=== PATIENT | female | born 1960 | race Caucasian/White ===

== ENCOUNTER 2016-08-25 09:27 | Emergency (ER) | payer BC ==
[2016-08-25 09:40] VITALS: BP 117/80
--- NOTE | 2016-08-25 15:29 | UC ---
Keena Goode Claudia, scribed for Shamika Brantley DO on 08/25/16 at 0942 . Shoulder Pain HPI - HPI Summary HPI Summary: 56 year old female presents to Urgent Care with right shoulder pain. Pt notes she suffered a mechanical fall in late June 2016 and thinks she did something to her right arm during the fall. Pt notes that within the last days she began having increased right shoulder pain and describes this pain as 8/10. Pt notes the sudden onset of pain was about a month ago but the pain has severely increased over the past few days. 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 Pt notes the pain is a constant throbbing pain. Pt states pain is aggravated with movement especially external rotation, internal rotation and abduction. She notes the pain radiates down her upper arm to her elbow with some occasional hand tingling to all 5 digits. She denies CP, SOB, abd pain, cough, LONG, rash, sore throat, urinary and bowel changes. - History of Current Complaint Chief Complaint: UCUpperExtremity Stated Complaint: SHOULDER INJURY Time Seen by Provider: 08/25/16 09:39 Hx Obtained From: Patient Onset/Duration: Sudden Onset, Still Present, Worse Since - today Timing: Constant Severity Initially: Moderate Severity Currently: Moderate Location Of Pain: Is Discrete @ - right shoulder, Radiates To - right elbow Character: Throbbing Aggravating Factor(s): Movement, Internal Rotation, External Rotation, Abduction Alleviating Factor(s): Nothing Associated Signs And Symptoms: Negative: Fever - Allergies/Home Medications Allergies/Adverse Reactions: Allergies Allergy/AdvReac Type Severity Reaction Status Date / Time Penicillins Allergy Severe Hives Verified 08/25/16 09:40 Bee Stings Allergy Airway Uncoded 08/25/16 09:40 Obstruction Hard Shellfish Allergy Hives Uncoded 08/25/16 09:40 Iodine Allergy Hives Uncoded 08/25/16 09:40 Home Medications: Home Medications Zolpidem TAB* [Ambien TAB*] 5 mg PO BEDTIME PRN 08/25/16 [History Confirmed 12/04] PMH/Surg Hx/FS Hx/Imm Hx Previously Healthy: Yes Endocrine History Of: Denies: Diabetes, Thyroid Disease Cardiovascular History Of: Denies: Cardiac Disorders, Hypertension Respiratory History Of: Denies: COPD, Asthma GI/ History Of: Denies: Ulcer Cancer History Of: Denies: Breast Cancer - Surgical History Surgical History: Yes Surgery Procedure, Year, and Place: Hysterectomy. left rotator cuff repair 2008 - Family History Known Family History: Negative: Cardiac Disease, Hypertension, Diabetes - Social History Occupation: Employed Full-time Lives: Alone Alcohol Use: Occasionally Substance Use Type: None Smoking Status (MU): Former Smoker Type: Cigarettes Have You Smoked in the Last Year: No When Did the Patient Quit Smoking/Using Tobacco: 1983 - Immunization History Most Recent Influenza Vaccination: may 2016 Review of Systems Constitutional: Negative Skin: Negative Eyes: Negative ENT: Negative Respiratory: Negative Cardiovascular: Negative Gastrointestinal: Negative Genitourinary: Negative Motor: Negative Neurovascular: Negative Musculoskeletal: Other: - right shoulder pain Neurological: Negative Psychological: Negative All Other Systems Reviewed And Are Negative: Yes Physical Exam Triage Information Reviewed: Yes Appearance: Well-Appearing, No Pain Distress, Well-Nourished Vital Signs: Initial Vital Signs Temp 98.6 F 08/25/16 09:33 Pulse 66 08/25/16 09:33 Resp 18 08/25/16 09:33 BP 117/80 08/25/16 09:33 Pulse Ox 98 08/25/16 09:33 Vital Signs Reviewed: Yes Eye Exam: Normal Eyes: Positive: Conjunctiva Clear. Negative: Conjunctiva Inflamed ENT Exam: Normal ENT: Positive: Hearing grossly normal. Negative: Muffled/hoarse voice Dental Exam: Normal Neck exam: Normal Neck: Positive: Supple Respiratory Exam: Normal Respiratory: Positive: Lungs clear, Normal breath sounds, No respiratory distress, No accessory muscle use Cardiovascular Exam: Normal Cardiovascular: Positive: RRR, No Murmur Abdominal Exam: Normal Abdomen Description: Positive: Nontender, Soft. Negative: Distended, Guarding Bowel Sounds: Positive: Present Musculoskeletal: Positive: Other: - Tenderness over the supraspinatus attachement with diffuse rotatorcuff tenderness. Weakness with empty can test, hard barrier appreciated with abduction and flexion at the shoulder. No bony tenderness. Neurological Exam: Normal Neurological: Positive: Alert, Muscle Tone Normal Psychological Exam: Normal Psychological: Positive: Age Appropriate Behavior Skin Exam: Normal Shoulder Course/Dx - Differential Dx/Diagnosis Differential Diagnosis/HQI/PQRI: Bursitis, Rotator Cuff Injury, Sprain, Other - frozen shoulder Provider Diagnoses: shoulder pain Discharge - Discharge Plan Condition: Stable Disposition: HOME Prescriptions: Naproxen [Naproxen 500 MG TABS] 500 mg PO BID #14 tab traMADol TAB* [Ultram*] 50 mg PO Q8H PRN #14 tab MDD 3 TABS PRN Reason: Pain Patient Education Materials: Rotator Cuff Tendinitis (ED), Adhesive Capsulitis (ED), Shoulder Pain (ED) Forms: *Work Release Referrals: Hoang Gan MD [Primary Care Provider] - If Needed Evan Escobar MD [Medical Doctor] - (FOLLOW UP IN 1-4 DAYS OR PER ORTHO) Additional Instructions: WE HAVE INCLUDED EDUCATIONAL MATERIAL OF ADHESIVE CAPSULITIS AND ROTATOR CUFF INJURY BECAUSE THEY ARE BOTH POSSIBLE EXPLAINATIONS FOR YOUR SHOULDER PAIN. EXERCISE PROGRAM FOR THE SHOULDER: Since the shoulder moves in so many directions, the joint attachment is weak. Muscles provide most of the stability to the shoulder. You must exercise your shoulder to prevent painful instability or stiffening. PASSIVE - These may be begun within a few days of the injury. While standing, lean forward, allowing the arm to hang down towards the floor. Move the arm in small circles while slowly twisting your chest towards and away from the hanging arm. Do this for one minute. ACTIVE - These may be performed when the doctor gives permission. Begin with the arms at the sides. Raise the arms forward (shoulder's width apart) until they reach shoulder level. Then slowly swing both arms back until they are aiming straight out away from each other. Then bring them forward again, and finally, lower them to your sides. Repeat 20 to 30 times. As you improve, put weights in your hands for the exercise. Start with one pound, and work up to 10 pounds. Never use more than is comfortable. Athletes may work up to 30 pounds. PHYSICAL THERAPY REFERRAL: You have been prescribed physical therapy. Treatments may include stretching, exercise, application of heat or cold, and other modalities. After an injury, PT can reduce swelling and pain. In recovery, PT is used to restore mobility and strength. Your specific treatment goals are: Reduction of Swelling (EGS, US, ice as needed) __x___ Pain Reduction (EGS, US, ice as needed) TENS Pack Fitting and Instruction Wound Hydrotherapy Preservation of Mobility __x___ Zoroastrianism of Mobility Strength Zoroastrianism __x___ Work or Sports Hardening This instruction sheet also serves as your PHYSICAL THERAPY REFERRAL! Please take it with you to the therapist, so he/she will be aware of your diagnosis and treatment plan. You may see the physical therapist of your choice for these treatments, but may wish to check with your insurance to be sure the provider you select is covered. It's important to see the doctor to whom you have been referred for follow up. ANTI-INFLAMMATORY MEDICATION: You have received a prescription for an antiinflammatory agent. This is an excellent, safe drug for pain control. In addition, it has potent antiinflammatory effects which are beneficial, especially in the treatment of injuries, arthritis, or tendonitis. It's best to take this medicine with food. Persons with ulcer disease or allergy to aspirin should notify their physician of this before taking this drug. Take the medication exactly as prescribed. Don't take additional doses unless instructed to do so by your doctor. If you develop wheezing, shortness of breath, hives, faintness, stomach pain, vomiting, or dark black stools, return for re-evaluation at once. ULTRAM (tramadol hydrochloride): Ultram is an excellent drug for pain relief. It is not a narcotic, but it works in a similar way. Ultram can take up to two hours for full effect. Although not addicting, Ultram is best avoided in patients with a history of drug abuse. Ultram should not be used with alcohol, sleeping pills, or narcotics. If you're prone to seizures, Ultram can make you more likely to have a seizure. Ultram can be hazardous when combined with MAO-inhibitor antidepressants (such as Nardil or Parnate). Be sure your doctor is aware of all medicines you are taking. Persons with severe liver or kidney disease should increase the time between doses of Ultram. Discuss this with your doctor if you're uncertain. Side effects of Ultram can include dizziness, nausea, constipation, sleepiness, and itching. (These side effects are also seen with narcotic pain medicines.) Please call your doctor if you have other disturbing effects. YOU WOULD LIKELY BENEFIT FROM OSTEOPATHIC TREATMENT. WE RECOMMEND THAT YOU FIND AN OSTEOPATHIC PHYSICIAN IN YOUR AREA WHO FOCUSES EXCLUSIVELY ON OSTEOPATHIC MANIPULATIVE MEDICINE WITH EXPERTISE IN MYOFACIAL, LYMPHATIC, VISCERAL AND INTEROSSEOUS WORK The documentation as recorded by the Keena goldman Claudia accurately reflects the service I personally performed and the decisions made by , Shamika Brantley DO.
== END 2016-08-25 10:49 | disposition home or self-care (01) ==
LOC: UCEAST 09:27
DX: M25.511 Pain in right shoulder (principal); Z88.0 Allergy status to penicillin; Z87.891 Personal history of nicotine dependence
CPT/HCPCS: 99212; G0463

== ENCOUNTER 2018-08-11 11:19 | Emergency (ER) | payer BC ==
--- OUTSIDE RECORDS SUMMARY | 2018-08-11 11:26 | XMS REPORT | Continuity of Care Document ---
:1960 External Reference #:[id number] Author Name Hoang Gan M.D. Address [address] [place] [address] Care Team Providers Name Role Phone Hoang Gan M.D. 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 [address] Group Name: [employer] MARKOS Benites [id number] PayID: [id number] Effective: 2013 Policy Number: [id number] Hubert DENILSON Javi [place] Expires: 2016 Group Name: [employer] [place] [address] [address] PayID: [id number] MARKOS Benites [id number] Effective: 2016 Policy Number: [id number] Hubert MIMABS Javi W [place] Group Name: [employer] [address] [address] PayID: [id number] MARKOS Benites [id number] Advance Directives Description No Information Available Problems Description No Information Family History Date Family Member(s) Problem(s) Comments Onset: (age 71 Father Cancer, Prostate Years) Father 83 Father Depression Onset: (age 70 Mother Osteoporosis Years) Mother 82 Children 1 First Son Sleep Apnea resolved after significant weight loss Siblings 2 First Brother Well And Healthy First Sister TMJ First Sister Celiac Sprue First Sister Arrhythmia has a pacer First Sister Crohn's Disease Paternal Grandfather due to Unknown () Causes Paternal Grandmother Peripheral Vascular Disease Maternal Grandfather due to COPD () Maternal Grandmother due to Cancer, () Ovarian Paternal Uncles Scleroderma age 50's, not sure of the cause Paternal Aunts Scleroderma arthritis, cutaneous involvement Paternal Aunts Crohn's Disease Social History Type Date Description Comments Sex Unknown Marital Status Single Lives With Male Partner Brett Diet Healthy, Well Balanced no junk foods, eating vegetables, eggs, meat, dairy, no bread or pasta. Pets 2 dogs Occupation Currently Working [employer] in [place] 5 days per week Hand Dominance Left-handed Tobacco Use Start: Unknown End: Former Cigarette Smoker for 5 years Unknown 1/2 Pack Daily Cigarette Use quit at age 24 ETOH Use Drinks about 2 shots of bourbon a day Recreational Drug Use Denies Drug Use Exercise Type/Frequency exercises sporadically tries to walk 2 miles at least three times per week Currently Active sexually active STD's No STD History Allergies, Adverse Reactions, Alerts Date Description Reaction Status Severity Comments 07/06/2004 Penicillin Active hives (cephalosporins Ok) 07/06/2004 Bee Stings Active anaphlactic 08/19/2012 Shellfish-derived Active hives after lobster, Products nausea after scallops Medications Medication Date Status Form Strength Qnty SIG Indications Ordering Provider Mirtazapine 05/06 Active Tablets 15mg 90tab take one s tablet by Elvia, mouth at M.D. bedtime Estradiol 05/16 Active Tablets 0.5mg 270ta 3 by mouth bs every day Angelina Gan Multi Adult 01/01 Active Chewtabs daily Ashkanwnti Gummi NIRAV Foster Epipen 2-Olu 04/18 Active Solution 0.3mg/0.3 2Pack use as Z91.030 Auto-Inject ML directed Angelina Gan Sulfamethoxazole/ 04/21 Hx Tablets 800-160mg 6tabs 1 take Hoang Trimethoprim tablet Elvia, - twice a M.D. 07/08 day for days Estrace 05/08 Hx Cream 0.1mg/GM 42.5u insert 2 nits to 4 grams Elvia, - vaginally M.D. 01/15 daily 1 to 2 weeks; then 1 gram 1 to 3 times a week then taper and repeat as needed Fluticasone 1010 Hx Suspension 50mcg/Act 16gm 2 sprays J01.90 Herson Propionate into each Lorena - nostril III, 01/15 once daily [facility]- Doxycycline 10 Hx Tablets 100mg 20tab 1 tab by J01.90 Herson Hyclate s mouth [place] - twice a III, 01/15 day for 10 [facility] days for infection Vagifem 01/10 Hx Tablets 10mcg 30tab [address] of Elvia, - vagina x 2 M.D. Zolpidem Tartrate 01/10 Hx Tablets 10mg 30tab take one s tablet by Elvia, - mouth at M.D. 05/07 bedtime maximum daily dose=1 Zolpidem Tartrate 06/19 Hx Tablets 5mg 30tab Take 1-2 s Tablets By Elvia, - Mouth AT M.D. 01/10 Bedtime Maximum Daily Dose=2 Cefuroxime Axetil 06/07 Hx Tablets 500mg 20tab one by J01.90 Jojo s mouth [place], - twice a [facility] 01/09 day for days Trazodone HCL 01/01 Hx Tablets 50mg 30tab take 1 by s mouth Beto Kim, - every [employer] 01/09 night at bedtime if needed for sleep Zovirax 01/01 Hx Ointment 5% 30gm apply B00.89 laine Kim, - amount to [employer] 07/08 area five times daily for up to 7 days as needed for cold sore Tamiflu 09/20 Hx Capsules 75mg 10cap one po bid 487.8 s for 5 days Beto Kim, - for flu [facility] 09/30 Excuse For Work 12/01 Hx 1unit [place] 465.9 s needs to Elvia, - be out of M.D. 12/31 work 11/29 - 12/04/13 Guaifenesin/Codei 12/01 Hx Solution 100-10mg/ 240ml 1-2 tsp po 465.9 Hoang 5ML q6 hr prn, El Gan M.D. 01/01 Zostavax 09/14 Hx Solution [id number]/ 1unit perishable V70.0 Rec 0.65ML s vaccineEl Cifuentes M.D. 01/01 immediate y to md office for administra tion unless administer ed at pharmacy Macrobid 08/19 Hx Capsules 100mg 14cap 1 po bid x s 7 days El Gan M.D. 09/07 Ranitidine HCL 08/19 Hx Tablets 150mg 60tab Take One 787.1 s Tablet By El Foster Mouth [employer]-Edwina 01/01 Daily Macrobid 06/12 Hx Capsules 100mg 14cap 1 po bid x s 7 days El Gan M.D. 10/15 Citalopram 04/24 Hx Tablets 20mg 30tab 1 po qd 311 Hoang Hydrobromide s El Gan M.D. 03/26 Pantoprazole 04/[address] 20mg 30tab 1 po qd 787.1 Hoang Sodium s El Gan M.D. 04/24 Omeprazole 04/[address] 20mg 90cap Take One 787.1 s Capsule By lE Gan M.D. 09/14 Every Lexapro 03/28 Hx Tablets 10mg 30tab 1 po qd 311 s El Gan M.D. 04/18 Bactrim DS 12/05 Hx Tablets 800-160mg 6tabs one tab 912.4 bid x3 K.W. - mere Swartz, 10/15 M.D. Pyridium 12/05 Hx Tablets 100mg 6tabs 1 tab po 912.4 tid X 2 K.W. - mere Swatrz, 04/06 M.D. Ciprofloxacin HCL 07/03 Hx 250mg 10uni 1 po bid 599.0 ts for urine R. Storm, - infection [employer] 07/08 Phenazopyridine 07/03 Hx Tablets 200mg 6tabs 1 po tid 599.0 Shawnti HCL prn for Beto Kim, - bladder [employer] 07/13 pain Epipen 2-Olu 01/05 Hx Device 1:1000 2Pack use as V15.06 Shawnti /2008 directed DiaJulisa Julio, - [employer] 04/18 Medroxyprogestero Hx Tablets 2.5mg 45tab 1/2 tab po Hoang ne /0000 s at hs Elvia, - M.DJulisa 01/05 Triamterene & Hx Tablets 25mg;37.5 0tabs 1 po prn Unknown HCTZ /0000 mg - 06/06 Trazodone Hx Tablets 30tab One QHS Endo,Lawr s MD patito - 10/15 Estradiol Hx Tablets 1mg 135ta Take One bs Tablet By Elvia, - Mouth Once M.D. 05/16 Diphenhydramine Hx Capsules 50mg 1 po qhs Unknown HCL /0000 - 02/21 Immunizations CPT Code Status Date Vaccine Lot # [id number] Given 07/09/2018 Influenza Virus Vaccine, Quadrivalent, 3 Yr > [id number] Quad, Preserv Free 89750 Given 05/08/2017 Influenza Virus Vaccine, Quadrivalent, 3 Yr > [id number] Quad, Preserv Free 27478 Given 06/07/2016 Influenza Virus Vaccine, Quadrivalent, 3 Yr > [id number] Quad, Preserv Free 87733 Given 04/18/2011 Tdap (Adacel) [id number] Given 06/06/2005 Td Age 7 to adult Decavac, Tenivac, Mass [id number] Biologics Vital Signs Date Vital Result Comment 07/09/2018 10:12am Weight 146.00 lb Weight 66.226 kg BP Systolic 102 mmHg BP Diastolic 70 mmHg Heart Rate 62 /min Body Temperature 97.1 F Respiratory Rate 16 /min O2 % BldC Oximetry 97 % 04/21/2018 12:10pm Body Temperature 98.1 F 04/21/2018 12:10pm Body Temperature 98.1 F 01/15/2018 8:51am Weight 150.00 lb Weight 68.040 kg BP Systolic 100 mmHg BP Diastolic 70 mmHg Heart Rate 62 /min Body Temperature 98.2 F Respiratory Rate 16 /min Height 63 inches 5'3" BMI (Body Mass Index) 26.6 kg/m2 05/08/2017 4:16pm Weight 132.00 lb Weight 59.875 kg BP Systolic 102 mmHg BP Diastolic 66 mmHg Heart Rate 53 /min Body Temperature 98.1 F Respiratory Rate 16 /min O2 % BldC Oximetry 98 % 04/29/2017 10:32am Weight 146.00 lb Weight 66.226 kg BP Systolic 100 mmHg BP Diastolic 70 mmHg Heart Rate 68 /min Body Temperature 97.0 F Respiratory Rate 16 /min O2 % BldC Oximetry 98 % 04/10/2017 8:57am Weight 136.00 lb Weight 61.690 kg BP Systolic 100 mmHg BP Diastolic 60 mmHg Heart Rate 64 /min Body Temperature 98.3 F 01/10/2017 10:03am Weight 136.00 lb Weight 61.690 kg BP Systolic 90 mmHg BP Diastolic 58 mmHg Heart Rate 68 /min Body Temperature 98.1 F Height 63 inches 5'3" BMI (Body Mass Index) 24.1 kg/m2 O2 % BldC Oximetry 98 % 06/07/2016 3:48pm Weight 138.00 lb Weight 62.597 kg BP Systolic 100 mmHg BP Diastolic 75 mmHg Heart Rate 76 /min Body Temperature 97.8 F 05/16/2016 11:27am Weight 139.00 lb Weight 63.050 kg BP Systolic 111 mmHg BP Diastolic 58 mmHg Heart Rate 68 /min 01/02/2016 2:56pm Weight 135.00 lb Weight 61.236 kg BP Systolic 98 mmHg BP Diastolic 56 mmHg Heart Rate 56 /min Height 64 inches 5'4" BMI (Body Mass Index) 23.2 kg/m2 09/20/2014 10:32am Weight 125.00 lb Weight 56.700 kg BP Systolic 100 mmHg BP Diastolic 60 mmHg Heart Rate 65 /min Body Temperature 97.6 F O2 % BldC Oximetry 98 % 12/01/2013 3:42pm Weight 133.00 lb Weight 60.329 kg BP Systolic 102 mmHg BP Diastolic 62 mmHg Heart Rate 79 /min Body Temperature 99.9 F O2 % BldC Oximetry 99 % 09/14/2013 8:35am Weight 135.00 lb Weight 61.236 kg BP Systolic 102 mmHg BP Diastolic 64 mmHg Heart Rate 64 /min Body Temperature 98.1 F Height 64 inches 5'4" BMI (Body Mass Index) 23.2 kg/m2 08/19/2012 2:12pm Weight 141.00 lb Weight 63.958 kg BP Systolic 99 mmHg BP Diastolic 62 mmHg Heart Rate 66 /min Height 63.50 inches 5'3.50" BMI (Body Mass Index) 24.6 kg/m2 05/05/2012 3:22pm Weight 141.00 lb Weight 63.958 kg BP Systolic 102 mmHg BP Diastolic 76 mmHg Heart Rate 60 /min Body Temperature 98.0 F 04/21/2012 11:53am Weight 141.00 lb Weight 63.958 kg BP Systolic 96 mmHg BP Diastolic 56 mmHg Heart Rate 56 /min Body Temperature 97.4 F Height 63.25 inches 5'3.25" BMI (Body Mass Index) 24.8 kg/m2 04/18/2011 8:49am Weight 141.00 lb Weight 63.958 kg BP Systolic 104 mmHg BP Diastolic 66 mmHg Heart Rate 92 /min Height 64 inches 5'4" BMI (Body Mass Index) 24.2 kg/m2 10/16/2010 1:54pm Weight 148.00 lb Weight 67.133 kg BP Systolic 110 mmHg BP Diastolic 70 mmHg Heart Rate 64 /min 06/12/2010 2:56pm Weight 144.00 lb Weight 65.318 kg BP Systolic 94 mmHg BP Diastolic 70 mmHg Heart Rate 72 /min 04/24/2010 2:33pm Weight 149.00 lb Weight 67.586 kg BP Systolic 98 mmHg BP Diastolic 80 mmHg Heart Rate 64 /min 04/06/2010 4:12pm Weight 148.00 lb Weight 67.133 kg BP Systolic 120 mmHg BP Diastolic 78 mmHg Heart Rate 92 /min 03/28/2010 11:42am Weight 146.00 lb Weight 66.226 kg BP Systolic 108 mmHg BP Diastolic 84 mmHg Heart Rate 72 /min Body Temperature 98.0 F 12/05/2009 10:25am Weight 151.00 lb Weight 68.494 kg BP Systolic 116 mmHg BP Diastolic 84 mmHg Heart Rate 92 /min Body Temperature 97.6 F 07/03/2009 4:48pm Weight 150.00 lb Weight 68.040 kg BP Systolic 108 mmHg BP Diastolic 70 mmHg Heart Rate 92 /min 01/05/2009 1:28pm Weight 141.00 lb Weight 63.958 kg BP Systolic 110 mmHg BP Diastolic 70 mmHg Heart Rate 64 /min Height 63.25 inches 5'3.25" BMI (Body Mass Index) 24.8 kg/m2 09/23/2008 4:28pm Weight 143.00 lb Weight 64.865 kg BP Systolic 114 mmHg BP Diastolic 84 mmHg Heart Rate 72 /min Body Temperature 99.2 F 10/15/2006 8:48am Weight 136.50 lb Weight 61.916 kg BP Systolic 118 mmHg BP Diastolic 62 mmHg Heart Rate 64 /min Height 64 inches 5'4" BMI (Body Mass Index) 23.4 kg/m2 09/16/2006 3:23pm Weight 140.00 lb Weight 63.504 kg BP Systolic 110 mmHg BP Diastolic 60 mmHg Heart Rate 61 /min Respiratory Rate 18 /min Height 63.5 inches 5'3.50" BMI (Body Mass Index) 24.4 kg/m2 07/11/2006 10:50am Weight 138.00 lb Weight 62.597 kg BP Systolic 100 mmHg BP Diastolic 60 mmHg Heart Rate 80 /min Height 63.5 inches 5'3.50" BMI (Body Mass Index) 24.1 kg/m2 06/06/2005 8:44am Weight 140.00 lb Weight 63.504 kg BP Systolic 110 mmHg BP Diastolic 68 mmHg Heart Rate 72 /min Height 63.5 inches 5'3.50" BMI (Body Mass Index) 24.4 kg/m2 07/25/2004 10:40am Weight 137.00 lb Weight 62.143 kg BP Systolic 110 mmHg BP Diastolic 70 mmHg Heart Rate 80 /min Respiratory Rate 18 /min Height 64 inches 5'4" BMI (Body Mass Index) 23.5 kg/m2 07/06/2004 9:25am Weight 134.00 lb Weight 60.782 kg BP Systolic 120 mmHg BP Diastolic 70 mmHg Body Temperature 97.0 F Results Test Date Facility Test Result H/L Range Note Urine Culture And 04/21/2018 [facility] Urine Culture SEE RESULT 1 Sensitivities [phone] BELOW Urine DIP 04/21/2018 In House Lab Leukocytes NEG Neg (607)- - Urine Nitrites NEG Neg Urobilinogen NORM Norm Total Protein, Urine TRACE Neg Urine pH 8 High 5-6 Urine Blood 250 High Neg Specific [place] 1.005 Low 1.01-1.02 Urine Ketones NEG Neg Urine Bilirubin NEG Neg Urine Glucose NEG Norm CBC Auto Diff 01/08/2018 [facility] White Blood 6.8 10^3/uL N 3.5-10.8 [phone] Count Red Blood Count 4.67 10^6/uL N 4.00-5.40 Hemoglobin 15.1 g/dL N 12.0-16.0 Hematocrit 45 % N 35-47 Mean Corpuscular Volume 95 fL N 80-97 Mean Corpuscular Hemoglobin 32 pg High 27-31 Mean Corpuscular HGB Conc 34 g/dL N 31-36 Red Cell Distribution Width 14 % N 10.5-15 Platelet Count 342 10^3/uL N 150-450 Mean Platelet Volume 9.2 um3 N 7.4-10.4 Abs Neutrophils 4.2 10^3/uL N 1.5-7.7 Abs Lymphocytes 1.7 10^3/uL N 1.0-4.8 Abs Monocytes 0.7 10^3/uL N 0-0.8 Abs Eosinophils 0.2 10^3/uL N 0-0.6 Abs Basophils 0 10^3/uL N 0-0.2 Abs Nucleated RBC 0 10^3/uL Granulocyte % 62.1 % N 38-83 Lymphocyte % 25.2 % N 25-47 Monocyte % 9.7 % High 0-7 Eosinophil % 2.4 % N 0-6 Basophil % 0.6 % N 0-2 Nucleated Red Blood Cells % 0 Comp Metabolic Panel 01/08/2018 [facility] Sodium 141 mmol/L N 135-145 [phone] Potassium 4.3 mmol/L N 3.5-5.0 Chloride 104 mmol/L N 101-111 Co2 Carbon Dioxide 28 mmol/L N 22-32 Anion Gap 9 mmol/L N 2-11 Glucose 98 mg/dL N 70-100 Blood Urea Nitrogen 17 mg/dL N 6-24 Creatinine 0.93 mg/dL N 0.51-0.95 BUN/Creatinine Ratio 18.3 N 8-20 Calcium 9.5 mg/dL N 8.6-10.3 Total Protein 7.1 g/dL N 6.4-8.9 Albumin 4.1 g/dL N 3.2-5.2 Globulin 3.0 g/dL N 2-4 Albumin/Globulin Ratio 1.4 N 1-3 Total Bilirubin 0.70 mg/dL N 0.2-1.0 Alkaline Phosphatase 22 U/L Low 34-104 Alt 22 U/L N 7-52 Ast 26 U/L N 13-39 Egfr Non- 61.7 >60 Egfr 74.7 >60 2 Lipid Profile 01/08/2018 [facility] Triglycerides 76 mg/dL 3 (Trig/Chol/HDL) [phone] Cholesterol 242 mg/dL 4 HDL Cholesterol 84.2 mg/dL 5 LDL Cholesterol 143 mg/dL 6 Laboratory test 07/25/2017 [facility] Surgical SEE RESULT 7, 8 finding [phone] Pathology BELOW CBC Auto Diff 01/02/2016 [facility] White Blood 8.5 10^3/uL N 3.5-4 [phone] Count 0.8 Red Blood Count 4.39 10^6/uL N 4.0-5.4 Hemoglobin 14.0 g/dL N 12.0-16.0 Hematocrit 42 % N 35-47 Mean Corpuscular Volume 96 fL N 80-97 Mean Corpuscular Hemoglobin 32 pg High 27-31 Mean Corpuscular HGB Conc 33 g/dL N 31-36 Red Cell Distribution Width 13 % N 10.5-15 Platelet Count 322 10^3/uL N 150-450 Mean Platelet Volume 9 um3 N 7.4-10.4 Abs Neutrophils 5.3 10^3/uL N 1.5-7.7 Abs Lymphocytes 2.2 10^3/uL N 1.0-4.8 Abs Monocytes 0.8 10^3/uL N 0-0.8 Abs Eosinophils 0.1 10^3/uL N 0-0.6 Abs Basophils 0.1 10^3/uL N 0-0.2 Abs Nucleated RBC 0.01 10^3/uL N Granulocyte % 62.9 % N 38-83 Lymphocyte % 26.0 % N 25-47 Monocyte % 9.1 % High 1-9 Eosinophil % 1.3 % N 0-6 Basophil % 0.7 % N 0-2 Nucleated Red Blood Cells % 0.1 N Comp Metabolic Panel 01/02/2016 [facility] Sodium 137 mmol/L N 133-145 [phone] Potassium 3.9 mmol/L N 3.5-5.0 Chloride 100 mmol/L Low 101-111 Co2 Carbon Dioxide 29 mmol/L N 22-32 Anion Gap 8 mmol/L N 2-11 Glucose 83 mg/dL N 70-100 Blood Urea Nitrogen 15 mg/dL N 6-24 Creatinine 0.97 mg/dL High 0.51-0.95 BUN/Creatinine Ratio 15.5 N 8-20 Calcium 10.0 mg/dL N 8.6-10.3 Total Protein 7.7 g/dL N 6.4-8.9 Albumin 4.6 g/dL N 3.2-5.2 Globulin 3.1 g/dL N 2-4 Albumin/Globulin Ratio 1.5 N 1-3 Total Bilirubin 0.80 mg/dL N 0.2-1.0 Alkaline Phosphatase 18 U/L Low 34-104 Alt 21 U/L N 7-52 Ast 25 U/L N 13-39 Egfr Non- 59.2 N >60 Egfr 76.1 N >60 9 Laboratory 01/02/2016 [facility] TSH (Thyroid Stim 1.42 N 0.34-5.60 10 test finding [phone] Horm) ?IU/mL Lipid Profile 01/02/2016 [facility] Triglycerides 93 mg/dL N 11 (Trig/Chol/HDL [phone] ) Cholesterol 214 mg/dL N 12 HDL Cholesterol 93.3 mg/dL N 13 LDL Cholesterol 102 mg/dL N 14 Flu Test A, B, Or A & B,Binaxn 12/01/2013 In House Lab Influenza A Antigen NEG (607)- - Influenza B Antigen NEG Urine DIP 09/14/2013 In House Lab Leukocytes TRACE Neg (607)- - Urine Nitrites NEG Neg Urine pH 7 High 5-6 Total Protein, Urine NEG Neg Urine Glucose NORM Norm Urine Ketones NEG Neg Urobilinogen NORM Norm Urine Bilirubin NEG Neg Urine Blood NEG Neg Specific [place] 1.010 1.01-1.02 Stool Panel 04/27/2012 [facility] O P: Giardia/ Cryptospor (SEE NOTE) 15 (CMC) [phone] Screen Stool Culture (SEE NOTE) 16 Stool For Blood 04/27/2012 [facility] Stool Occult ( SEE NOTE) 17 [phone] Blood Laboratory test 04/27/2012 [facility] Fecal Lactoferrin (SEE NOTE) 18 finding [phone] (Stool WBC) CBC With Manual 04/21/2012 [facility] White Blood Count 6.7 10^3/uL 4.8-1 Diff [phone] 0.8 Red Blood Count 3.97 10^6/uL Low 4.0-5.4 Hemoglobin 12.7 g/dL 12.0-16.0 Hematocrit 38.8 % 35-47 Mean Corpuscular Volume 98 fL High 80-97 Mean Corpuscular Hemoglobin 32 pg High 27-31 Mean Corpuscular HGB Conc 33 g/dL 31-36 Red Cell Distribution Width 14 % 10.5-15 Platelet Count 261 10^3/uL 150-450 Mean Platelet Volume 9 um3 7.4-10.4 Abs Neutrophils 4.2 10^3/uL 1.5-7.7 Abs Lymphocytes 1.7 10^3/uL 1.0-4.8 Abs Monocytes 0.7 10^3/uL 0-0.8 Abs Eosinophils 0.2 10^3/uL 0-0.6 Abs Basophils 0.1 10^3/uL 0-0.2 Abs Nucleated RBC 0 10^3/uL Neutrophil % 63.0 % 38-83 Band % 6.0 % 0-8 Lymphocytes % 21.0 % Low 25-47 Monocytes % 9.0 % 0-13 Eosinophils % 1.0 % 0-6 Basophil % 0 % 0-2 Reactive Lymph % 0 % 0-6 Metamyelocytes % 0 % 0-2 Myelocytes % 0 % 0-1 Promyelocytes % 0 % Blast % 0 % RBC Morphology Normal Normal Comp Metabolic Panel 04/21/2012 [facility] Sodium 140 mmol/L 133-145 [phone] Potassium 4.0 mmol/L 3.5-5.0 Chloride 104 mmol/L 101-111 Co2 Carbon Dioxide 30.0 mmol/L 22-32 Anion Gap 6.0 mmol/L 2-11 Glucose 89 mg/dL 70-100 Blood Urea Nitrogen 11 mg/dL 6-24 Creatinine 0.90 mg/dL 0.50-1.40 BUN/Creatinine Ratio 12.2 8-20 Calcium 9.3 mg/dL 8.1-9.9 Total Protein 6.3 GM/DL 6.2-8.1 Albumin 3.8 GM/DL 3.6-5.4 Globulin 2.5 GM/DL 2-4 Albumin/Globulin Ratio 1.5 1-3 Total Bilirubin 0.9 mg/dL 0.1-1.0 19 Alkaline Phosphatase 19 U/L Low 30-110 Alt 21 U/L 14-54 Ast 25 U/L 12-42 Egfr Non- 65.2 >60 Egfr 83.9 >60 20 Laboratory test finding 04/21/2012 [facility] Lipase 33 U/L 22-51 [phone] Amylase 62 U/L 20-120 Urine Culture & 04/21/2012 [facility] Urine Culture ( SEE NOTE) 21 Sensitivi [phone] Urine DIP 04/21/2012 In House Lab Leukocytes TRACE Neg (607)- - Urine Nitrites NEG Neg Urine pH 7 High 5-6 Total Protein, Urine NEG Neg Urine Glucose NORM Norm Urine Ketones NEG Neg Urobilinogen NORM Norm Urine Bilirubin NEG Neg Urine Blood NEG Neg Specific [place] N/A Low 1.01-1.02 Urine DIP 04/18/2011 In House Lab Leukocytes NEG Neg (607)- - Urine Nitrites NEG Neg Urine pH 6 5-6 Total Protein, Urine NEG Neg Urine Glucose NORM Norm Urine Ketones NEG Neg Urobilinogen NORM Norm Urine Bilirubin NEG Neg Urine Blood TINY TRACE Neg Specific [place] NA Low 1.01-1.02 Hemoccult 04/09/2010 In House Lab Stool-Occult Blood #1 neg Neg (607)- - Stool-Occult Blood #2 neg Neg Stool-Occult Blood #3 neg Neg Laboratory test 04/06/2010 [facility] Urine Culture No significant g 22 finding [phone] <SEE NOTE> Urine DIP 04/06/2010 In House Lab Leukocytes ++ Neg (607)- - Urine Nitrites NEG Neg Urine pH 5 5-6 Total Protein, Urine NEG Neg Urine Glucose NORM Norm Urine Ketones NEG Neg Urobilinogen NORM Norm Urine Bilirubin NEG Neg Urine Blood 250 High Neg Specific [place] N/A Low 1.01-1.02 CBC With 03/28/2010 [facility] White Blood 9.1 CUMM 4.8-10.8 Electronic Diff [phone] Count Red Cell Count 4.19 CUMM Low 4.2-5.4 Hemoglobin 13.9 g/dL 12.0-16.0 Hematocrit 40 % 35-47 Mean Corpuscular Volume 96 um3 79-97 Mean Corpuscular Hemoglob 33 pg High 27-31 Mean Corpuscular HGB Cone 35 g/dL 32-36 Redcell Distribution WDTH 14 % 10.5-15 Platelet Count 301 CUMM 150-450 Mean Platelet Volume 8.3 um3 7.4-10.4 Gran % 69.0 % 38-83 Lymph % 18.8 % Low 25-47 Mononuclear % 10.3 % High 1-9 Eosinophil % 1.4 % 0-6 Basophil % 0.5 % 0-2 Abs Lymphs 1.7 1.0-4.8 Abs Mononuclear 0.9 High 0-0.8 Absolute Neutrophil Count 6.3 1.5-7.7 Abs Eosinophils 0.1 0-0.6 Abs Basophils 0 0-0.2 23 Comp Metabolic Panel 03/28/2010 [facility] Sodium 140 mmol/L 135-145 [phone] Potassium 4.4 mmol/L 3.5-5.0 Chloride 102 mmol/L 101-111 Co2 (Carbon Dioxide) 30.0 mmol/L 22-32 Anion Gap 8.0 mmol/L 2-11 24 Glucose 75 mg/dL 70-100 25 BUN 10 mg/dL 6-24 Creatinine 1.00 mg/dL 0.50-1.40 One Over Creatinine 1.00 BUN/Creatinine Ratio 10.0 8-20 Calcium 9.7 mg/dL 8.1-9.9 Total Protein 7.0 GM/DL 6.2-8.1 Albumin 3.8 GM/DL 3.6-5.4 Globulin 3.2 GM/DL 2-4 Albumin/Globulin Ratio 1.2 1-3 Bilirubin Total 1.1 mg/dL 0.4-1.5 26 Alkaline Phosphatase 17 U/L Low 30-110 Alt (SGPT) 21 U/L 14-54 Ast (Sgot) 19 U/L 12-42 eGFR Non- 61.9 > 60 eGFR 74.9 > 60 27 Urine Culture 12/05/2009 [facility] Urine Culture ESCHERICHIA 28, 29 & Sensitivi [phone] Sensitivi COLI Urine DIP 12/05/2009 In House Lab Leukocytes ++ Neg (607)- - Urine Nitrites trace Neg Urine pH 5 5-6 Total Protein, Urine neg Neg Urine Glucose norm Norm Urine Ketones neg Neg Urobilinogen norm Norm Urine Bilirubin neg Neg Urine Blood about 250 Neg Specific [place] n/a Low 1.01-1.02 Urine DIP 07/03/2009 In House Lab Leukocytes + Neg (607)- - Urine Nitrites NEG Neg Urine pH 5 5-6 Total Protein, Urine NEG Neg Urine Glucose NORM Norm Urine Ketones NEG Neg Urobilinogen NORM Norm Urine Bilirubin NEG Neg Urine Blood 250 High Neg Specific [place] N/A Low 1.01-1.02 Laboratory test 07/03/2009 [facility] Urine Culture Escherichia coli 30 finding [phone] Urine DIP 01/05/2009 In House Lab Leukocytes NEG Neg (607)- - Urine Nitrites NEG Neg Urine pH 5 5-6 Total Protein, Urine NEG Neg Urine Glucose NORM Norm Urine Ketones NEG Neg Urobilinogen NORM Norm Urine Bilirubin NEG Neg Urine Blood NEG Neg Specific [place] NA Low 1.01-1.02 Vitamin D.25 01/05/2009 [facility] 25-Hydroxy Vitamin <4.0 ng/mL () Hydroxy [phone] D2 25-Hydroxy Vitamin D3 35 ng/mL () 25-Hydroxy Vitamin D Total 35 ng/mL () 31 CBC With 01/05/2009 [facility] White Blood 5.0 CUMM 4.8-10.8 Electronic Diff [phone] Count Red Cell Count 4.02 CUMM Low 4.2-5.4 Hemoglobin 12.9 g/dL 12.0-16.0 Hematocrit 37 % 35-47 Mean Corpuscular Volume 93 um3 79-97 Mean Corpuscular Hemoglob 32 pg High 27-31 Mean Corpuscular HGB Cone 35 g/dL 32-36 Redcell Distribution WDTH 13 % 10.5-15 Platelet Count 248 CUMM 150-450 Mean Platelet Volume 8.6 um3 7.4-10.4 Gran % 50.2 % 38-83 Lymph % 36.9 % 25-47 Mononuclear % 10.4 % High 1-9 Eosinophil % 1.9 % 0-6 Basophil % 0.6 % 0-2 Abs Lymphs 1.8 1.0-4.8 Abs Mononuclear 0.5 0-0.8 Absolute Neutrophil Count 2.5 1.5-7.7 Abs Eosinophils 0.1 0-0.6 Abs Basophils 0 0-0.2 Laboratory test 01/05/2009 [facility] TSH 1.33 MIU/ ML 0.34-5.60 finding [phone] Lipid Profile 01/05/2009 [facility] Triglyceride 66 mg/dL 40-200 (Trig/Chol/HDL) [phone] Cholesterol 204 mg/dL High Less Than 200 32 High Density Lipoprotein 95 mg/dL High 40-60 33 Cholesterol/HDL Ratio 2.15 AVERAGE 1-4.44 Low Density Lipoprotein 96 mg/dL Less Than 100 34 Comp Metabolic Panel 01/05/2009 [facility] Sodium 138 mmol/L 135-145 [phone] Potassium 3.8 mmol/L 3.5-5.0 Chloride 102 mmol/L 101-111 Co2 (Carbon Dioxide) 30.0 mmol/L 22-32 Anion Gap 6.0 mmol/L 2-11 35 Glucose 114 mg/dL High 70-100 36 BUN 14 mg/dL 6-24 Creatinine 1.10 mg/dL 0.50-1.40 One Over Creatinine 0.90 BUN/Creatinine Ratio 12.7 8-20 Calcium 9.3 mg/dL 8.1-9.9 37 Total Protein 6.3 GM/DL 6.2-8.1 Albumin 3.9 GM/DL 3.6-5.4 Globulin 2.4 GM/DL 2-4 Albumin/Globulin Ratio 1.6 1-3 Bilirubin Total 1.0 mg/dL 0.4-1.5 38 Alkaline Phosphatase 14 U/L Low 30-110 Alt (SGPT) 23 U/L 14-54 Ast (Sgot) 26 U/L 12-42 Laboratory test 09/23/2008 In House Lab Flu Test A&B, POS finding (607)- - Quickvue Basic Metabolic Panel 04/08/2007 [facility] One Over Creatinine 1.11 [phone] Anion Gap 6.0 mmol/L 2-11 39 BUN 23 mg/dL 6-24 Calcium 8.7 mg/dL 8.7-10.2 Chloride 101 mmol/L 101-111 Co2 (Carbon Dioxide) 28.0 mmol/L 22-32 Glucose 126 mg/dL High 70-105 Potassium 4.0 mmol/L 3.5-5.0 Sodium 135 mmol/L 135-145 BUN/Creatinine Ratio 25.6 High 8-20 Creatinine 0.9 mg/dL 0.5-1.4 CBC With 04/08/2007 [facility] White Blood 6.2 CUMM 4.8-10.8 Electronic Diff [phone] Count Abs Basophils 0.1 0-0.2 Abs Eosinophils 0.1 0-0.6 Absolute Neutrophil Count 3.6 1.5-7.7 Abs Lymphs 1.8 1.0-4.8 Abs Mononuclear 0.6 0-0.8 Basophil % 0.9 % 0-2 Hematocrit 42 % 35-47 Hemoglobin 14.5 g/dL 12.0-16.0 Eosinophil % 2.0 % 0-6 Gran % 59.2 % 38-83 Lymph % 28.6 % 20-45 Mean Corpuscular HGB Cone 34 g/dL 32-36 Mean Corpuscular Hemoglob 33 pg High 27-31 Mean Corpuscular Volume 94 um3 79-97 Mean Platelet Volume 8.2 um3 7.4-10.4 Mononuclear % 9.3 % High 1-9 Platelet Count 302 CUMM 150-450 Red Cell Count 4.47 CUMM 4.2-5.4 Redcell Distribution WDTH 14 % 10.5-15 Laboratory test 04/08/2007 [facility] Erythrocyte Sed 5 MM/HR 0-15 finding [phone] Rate Lipid Profile 10/20/2006 [facility] Cholesterol/HDL 2.45 AVERAGE 1-4.44 (Trig/Chol/HDL) [phone] Ratio Cholesterol 206 mg/dL High Less Than 200 40 Triglyceride 59 mg/dL 40-200 High Density Lipoprotein 84 mg/dL High 40-60 41 Low Density Lipoprotein 110 mg/dL High Less Than 100 42 Urine DIP 10/15/2006 In House Lab Leukocytes NEG Neg (607)- - Urine Nitrites NEG Neg Urine pH 5 5-6 Total Protein, Urine NEG Neg Urine Glucose NORM Norm Urine Ketones NEG Neg Urobilinogen NORM Norm Urine Bilirubin NEG Neg Urine Blood NEG Neg Specific [place] N/A Low 1.01-1.02 Urinalysis 01/15/2006 [facility] Ua Color YELLOW [phone] Appearance-Urine CLEAR Bilirubin-Ur NEGATIVE Negative Blood-Urine NEGATIVE Negative Esterase-Urine NEGATIVE Negative Glucose-Urine NEGATIVE Negative Ketones-Urine NEGATIVE Negative Nitrite NEGATIVE Negative PH-Urine 6.5 5-9 Protein-Urine NEGATIVE Negative [id number]-[id number] NEGATIVE Negative Specific [place]-Ur 1.018 1.010-1.030 Zaria 01/15/2006 [facility] Antinuclear POSITIVE Abnormal Negative (Antinuclear [phone] AB Antibodies) Antinuclear AB 1:320 Abnormal Zaria Pattern HOMOGENEOUS Abnormal Laboratory test 01/15/2006 [facility] Erythrocyte Sed 11 MM/HR 0-15 finding [phone] Rate CBC With 01/15/2006 [facility] White Blood 7.6 CUMM 4.8-10.8 Electronic Diff [phone] Count Abs Basophils 0 0-0.2 Abs Eosinophils 0.1 0-0.6 Absolute Neutrophil Count 5.2 1.5-7.7 Abs Lymphs 1.6 1.0-4.8 Abs Mononuclear 0.7 0-0.8 Basophil % 0.6 % 0-2 Hematocrit 39 % 35-47 Hemoglobin 13.5 g/dL 12.0-16.0 Eosinophil % 0.8 % 0-6 Gran % 68.7 % 38-83 Lymph % 20.6 % 20-45 Mean Corpuscular HGB Cone 35 g/dL 32-36 Mean Corpuscular Hemoglob 33 pg High 27-31 Mean Corpuscular Volume 95 um3 79-97 Mean Platelet Volume 8.5 um3 7.4-10.4 Mononuclear % 9.3 % High 1-9 Platelet Count 318 CUMM 150-450 Red Cell Count 4.06 CUMM Low 4.2-5.4 Redcell Distribution WDTH 14 % 10.5-15 CBC With Manual 08/19/2005 [facility] RBC Morphology NORMAL 43 Diff [phone] White Blood Count 9.2 CUMM 4.8-10.8 Hematocrit 42 % 35-47 Hemoglobin 14.6 g/dL 12.0-16.0 Mean Corpuscular HGB Cone 35 g/dL 32-36 Mean Corpuscular Hemoglob 32 pg High 27-31 Mean Corpuscular Volume 92 um3 79-97 Mean Platelet Volume 8.1 um3 7.4-10.4 Platelet Count 341 CUMM 150-450 Polysegmented Neutrophil 75 % 38-83 Red Cell Count 4.54 CUMM 4.2-5.4 Redcell Distribution WDTH 14 % 10.5-15 Absolute Neutrophil Count 7.1 Band Neutrophil 3 % 0-8 Basophil 1 % 0-2 Eosenophil 1 % 0-6 Lymphocyte 12 % 5-47 Monocyte 8 % 0-13 Laboratory test 08/19/2005 [facility] CPK (Creatine 123 U/L 0-170 finding [phone] Kinase) Comp Metabolic 08/19/2005 [facility] One Over 0.90 Panel [phone] Creatinine Anion Gap 5.0 mmol/L 2-11 44 Albumin/Globulin Ratio 1.2 1-3 Albumin 4.0 GM/DL 3.6-5.4 Alkaline Phosphatase 21 U/L Low 30-110 Alt (SGPT) 20 U/L 14-54 Ast (Sgot) 26 U/L 12-42 BUN 14 mg/dL 6-24 Calcium 9.5 mg/dL 8.7-10.2 Chloride 105 mmol/L 101-111 Co2 (Carbon Dioxide) 29.0 mmol/L 22-32 Globulin 3.3 GM/DL 2-4 Glucose 113 mg/dL High 70-105 Potassium 3.9 mmol/L 3.5-5.0 Sodium 139 mmol/L 135-145 Bilirubin Total 0.9 mg/dL 0.4-1.5 Total Protein 7.3 GM/DL 6.2-8.1 BUN/Creatinine Ratio 12.7 8-20 Creatinine 1.1 mg/dL 0.5-1.4 Laboratory test 08/19/2005 [facility] TSH 1.75 MIU/ ML 0.34-5.60 finding [phone] Vitamin B12 308 pg/mL 180-914 Zaria 08/19/2005 [facility] Antinuclear POSITIVE Abnormal Negative (Antinuclear [phone] AB Antibodies) Zaria Pattern SPECKLED Abnormal 45 Antinuclear AB POSITIVE (NEG) 46 Antinuclear AB 1:1280 Abnormal Laboratory test 08/19/2005 [facility] Endomysial Iga <1:10 TITER <1:10 47 finding [phone] Antibodies Urine DIP 06/06/2005 In House Lab Leukocytes NEG Neg (607)- - Urine Nitrites NEG Neg Urine pH 5 5-6 Total Protein, Urine NEG Neg Urine Glucose NORM Norm Urine Ketones NEG Neg Urobolinogen NORM Norm Urine Bilirubin NEG Neg Urine Blood NEG Neg Specific [place] NA Low 1.01-1.02 Urine DIP 07/06/2004 In House Lab Leukocytes NEG Neg (607)- - Urine Nitrites NEG Neg Urine pH 5 5-6 Total Protein, Urine NL Neg Urine Glucose NL Norm Urine Ketones NL Neg Urobolinogen NL Norm Urine Bilirubin NL Neg Urine Blood NL Neg Specific [place] N/A Low 1.01-1.02 1 SEE RESULT BELOW Name: RAYMOND SORIANO Mike : [address]: Hoang Gan MD Acct: [id number] Unit: [id number] AGE: 58 Location: [facility] Re04/21/18 SEX: F Status: REG REF SPEC: [id number] RG: 04/21/18-[address]: Hoang Gan MD REQ: [id number] RECD: 04/21/18 STATUS: COMP _ SOURCE: URINE SPDESC: ORDERED: Urine Culture COMMENTS: [id number] Urine Source: Random Procedure Result Reported Site Urine Culture Final 04/22/18- 1249 ML No Growth (<1,000 CFU/mL) * ML - Main Lab . END OF REPORT DEPARTMENT OF PATHOLOGY, [address] [place] [address] Dejuan Cochran M.D. Director [facility] # [id number] 2 Because ethnic data is not always readily available, this report includes an eGFR for both -Americans and non- Americans. The National Kidney Disease Education Program (NKDEP) does not endorse the use of the MDRD equation for patients that are not between the ages of 18 and 70, are , have extremes of body size, muscle mass, or nutritional status, or are non- or non-. According to the National Kidney Foundation, irrespective of diagnosis, the stage of the disease is based on the level of kidney function: Stage Description GFR(mL/min/1.73 m(2)) 1 Kidney damage with normal or decreased GFR 90 2 Kidney damage with mild decrease in GFR 60-89 3 Moderate decrease in GFR 30-59 4 Severe decrease in GFR 15-29 5 Kidney failure <15 (or dialysis) 3 Desirable: <150 Borderline High: 150-199 High: 200-499 Very High: >500 4 Desirable: <200 Borderline High: 200-239 High: >239 5 Low: <40 Desirable: 40-60 High: >60 6 Desirable: <100 Near Optimal: 100-129 Borderline High: 130-159 High: 160-189 Very High: >189 7 [id number] SEE RESULT BELOW Name: RAYMOND SORIANO : [address]: Jarred Trevizo MD Acct: [id number] Unit: [id number] AGE: 57 Location: [facility] Re07/25/17 SEX: F Status: REG REF SPEC: [id number] RG: 07/25/17130 [facility] DR: Jarred Trevizo MD REQ: [id number] RECD: 07/25/17 STATUS: [place] REYES DR: Hoang Valdovinos MD _ ORDERED: LEVEL 4 COMMENTS: [id number] FINAL DIAGNOSIS Skin, left superior forehead, excision: -- Scar, excised. -- No evidence of residual squamous cell carcinoma. COMMENT: The previous lesion at this site ([id number]) has been completely excised. CLINICAL HISTORY See [facility] [id number] PRE-OPERATIVE DIAGNOSIS Squamous cell carcinoma, suture yang 12 o?clock anterior medial apex margin GROSS DESCRIPTION The specimen is received in formalin labeled, Excision Squamous Cell Carcinoma Left Superior Forehead, Suture Yang 12:00 Anterior Medial Cody Margin, and consists of a 3.0 x 0.8 cm becerra-white skin ellipse excised to a maximum depth of 0.4 cm. There is a suture attached to one long axis designating the 12:00 anterior medial apex margin. The specimen is inked as follows: 3:00 half blue, 9:00 half black, 12:00 tip green, serially sectioned from 12:00 to 6:00 and entirely submitted in cassettes A through D to include tips in cassette A. Signed (signature on file) Odalis Epperson MD 03/07 1044 END OF REPORT * ML=Testing performed at Main Lab DEPARTMENT OF PATHOLOGY, [address] [place] [address] Dejuan Cochran M.D. Director [facility] # [id number] 9 Because ethnic data is not always readily available, this report includes an eGFR for both -Americans and non- Americans. The National Kidney Disease Education Program (NKDEP) does not endorse the use of the MDRD equation for patients that are not between the ages of 18 and 70, are , have extremes of body size, muscle mass, or nutritional status, or are non- or non-. According to the National Kidney Foundation, irrespective of diagnosis, the stage of the disease is based on the level of kidney function: Stage Description GFR(mL/min/1.73 m(2)) 1 Kidney damage with normal or decreased GFR 90 2 Kidney damage with mild decrease in GFR 60-89 3 Moderate decrease in GFR 30-59 4 Severe decrease in GFR 15-29 5 Kidney failure <15 (or dialysis) 10 [id number] Desirable <150 Borderline high 150-199 High 200-499 Very High >500 12 Desirable <200 Borderline high 200-239 High >239 13 Low <40 Desirable: 40-60 High: >60 14 Desirable: <100 mg/dL Near Optimal: 100-129 mg/dL Borderline High: 130-159 mg/dL High: 160-189 mg/dL Very High: >189 mg/dL 15 RUN DATE: 04/27/12 [facility] LIVE PAGE 1 RUN TIME: [address], [place] [address] Specimen Inquiry Name: RAYMOND SORIANO : [address]: Hoang Gan MD Acct: [id number] Unit: [id number] AGE: 52 Location: [facility] Re04/27/12 SEX: F Status: REG REF SPEC: [id number] RG: 04/27/[address]: Hoang Gan MD REQ: [id number] RECD: 04/27/12 STATUS: RES _ SOURCE: STOOL SPDESC: ORDERED: Hemoccult, Stool Culture, Fecal Lactoferr, O P: Giar/Crypt QUERIES: [employer] Number [id number] Procedure Result Verified Site Stool Culture PENDING Stool Specimen Description Final 04/27/12- 1410 ML Stool Color Brown Stool Form Formed Stool Consistency Firm Shiga Toxin 1 2 PENDING Fecal Lactoferrin (Stool WBC) Final 04/27/12- 1451 ML Fecal Lactoferrin Positive by Immunoassay TEST LIMITATIONS: Assay detects elevated levels of lactoferrin released from fecal leukocytes as a marker of intestinal inflammation. The test may not be appropriate in immunocompromised persons. Fecal samples from breast fed infants should not be used with this assay. Stool Occult Blood Final 04/27/12- 1410 ML Stool Occult Blood Negative O P: Giardia/Cryptospor Screen Final 04/27/12- 1506 ML Giardia Antigen Negative by Immunoassay Cryptosporidium Antigen Negative by Immunoassay CONTINUED ON NEXT PAGE * ML=Testing performed at Main Lab DEPARTMENT OF PATHOLOGY, [facility] [employer] [place], [place] [address] Dejuan Cochran M.D. Director [facility] Permit #[id number] RUN DATE: 04/27/12 [facility] LIVE PAGE 2 RUN TIME: 150 [facility] [employer] [place], [place] [address] Specimen Inquiry Patient: RAYMOND SORIANO [id number] (Continued) Specimen: [id number] Collected: 04/27/12 Received: 04/27/12 (Continued) Procedure Result Verified Site O P: Giardia/Cryptospor Screen Final (continued) 04/27/12 150 Giardia and cryptosporidium antigen testing performed by immunoassay. If patient is immunocompromised or has traveled to or is from a developing country, a full ova and parasite exam with microscopic (OPMIC) is recommended. All samples will be held one month in case full ova and parasite testing is requested. Contact the Microbiology Department at [phone]. TEST LIMITATIONS: As with all diagnostic procedures, the results obtained should be used in conjunction with other clinical information available the physician. Negative results can occur in samples containing antigen below lower limits of detection of the assay. The use of colonic washes, aspirates or other diluted sample types has not been established and could affect the performance of the assay. Stool samples contaminated with an oily or particulate base (eg. Barium, mineral oil etc.) could interfere with the test and are not recommended. END OF REPORT * ML=Testing performed at Main Lab DEPARTMENT OF PATHOLOGY, [facility] [employer] [place], [place] [address] Dejuan Cochran M.D. Director [facility] Permit #[id number] RUN DATE: 04/29/12 [facility] LIVE PAGE 1 RUN TIME: 1528 [facility] [employer] [place], [place] [address] Specimen Inquiry Name: RAYMOND SORIANO : [address]: Hoang Gan MD Acct: [id number] Unit: [id number] AGE: 52 Location: [facility] Re04/27/12 SEX: F Status: REG REF SPEC: [id number] RG: 04/27/12 [facility] DR: Hoang Gan MD RE: [id number] RECD: 04/27/12 STATUS: COMP _ SOURCE: STOOL SPDESC: ORDERED: Hemoccult, Stool Culture, Fecal Lactoferr, O P: Giar/Crypt QUERIES: [employer] Number [id number] Procedure Result Verified Site Stool Culture Final 04/29/12- 1055 ML Result No enteric pathogens isolated Testing for Salmonella, Shigella, Aeromonas, Plesiomonas, Yersinia and Campylobacter are included in a Stool Culture. Vibrio spp not routinely tested for in a stool culture. If testing is desired, please request specifically when placing test order. Sensitivities not routinely performed on stool isolates, as antibiotics may prolong the carriage rate of bacteria. Please contact the microbiology lab if sensitivities are required. Stool Specimen Description Final 04/27/12- 1410 ML Stool Color Brown Stool Form Formed Stool Consistency Firm Shiga Toxin 1 2 Final 04/29/12- 1528 ML SHIGA TOXIN 1 Negative by Immunochromatographic Assay SHIGA TOXIN 2 Negative by Immunochromatographic Assay Fecal Lactoferrin (Stool WBC) Final 04/27/12- 1451 ML Fecal Lactoferrin Positive by Immunoassay CONTINUED ON NEXT PAGE * ML=Testing performed at Main Lab DEPARTMENT OF PATHOLOGY, [address] [place] [address] Dejuan Cochran M.D. Director [facility] Permit #[id number] RUN DATE: 04/29/12 [facility] LIVE PAGE 2 RUN TIME: [address] [place], [place] [address] Specimen Inquiry Patient: RAYMOND SORIANO [id number] (Continued) Specimen: [id number] Collected: 04/27/12 Received: 04/27/12 (Continued) Procedure Result Verified Site Fecal Lactoferrin (Stool WBC) Final (continued) 04/27/12- 1451 TEST LIMITATIONS: Assay detects elevated levels of lactoferrin released from fecal leukocytes as a marker of intestinal inflammation. The test may not be appropriate in immunocompromised persons. Fecal samples from breast fed infants should not be used with this assay. Stool Occult Blood Final 04/27/12- 1410 ML Stool Occult Blood Negative O P: Giardia/Cryptospor Screen Final 04/27/12- 1506 ML Giardia Antigen Negative by Immunoassay Cryptosporidium Antigen Negative by Immunoassay Giardia and cryptosporidium antigen testing performed by immunoassay. If patient is immunocompromised or has traveled to or is from a developing country, a full ova and parasite exam with microscopic (OPMIC) is recommended. All samples will be held one month in case full ova and parasite testing is requested. Contact the Microbiology Department at [phone]. TEST LIMITATIONS: As with all diagnostic procedures, the results obtained should be used in conjunction with other clinical information available the physician. Negative results can occur in samples containing antigen below lower limits of detection of the assay. The use of colonic washes, aspirates or other diluted sample types has not been established and could affect the performance of the assay. Stool samples contaminated with an oily or particulate base (eg. Barium, mineral oil etc.) could interfere with the test and are not recommended. END OF REPORT * ML=Testing performed at Main Lab DEPARTMENT OF PATHOLOGY, [facility] [employer] [place], [place] [address] Dejuan Cochran M.D. Director [facility] Permit #[id number] RUN DATE: 04/27/12 [facility] LIVE PAGE 1 RUN TIME: [address] [place] [address] Specimen Inquiry Name: RAYMOND SORIANO : [address]: Hoang Gan MD Acct: [id number] Unit: [id number] AGE: 52 Location: [facility] Re04/27/12 SEX: F Status: REG REF SPEC: [id number] RG: 04/27/[address]: Hoang Gan MD REQ: [id number] RECD: 04/27/12 STATUS: RES _ SOURCE: STOOL SPDESC: ORDERED: Hemoccult, Stool Culture, Fecal Lactoferr, O P: Serg/Bart QUERIES: [employer] Number [id number] Procedure Result Verified Site Stool Culture PENDING Stool Specimen Description Final 04/27/12- 1410 ML Stool Color Brown Stool Form Formed Stool Consistency Firm Shiga Toxin 1 2 PENDING Fecal Lactoferrin (Stool WBC) PENDING Stool Occult Blood Final 04/27/12- 1410 ML Stool Occult Blood Negative O P: Giardia/Cryptospor Screen PENDING END OF REPORT * ML=Testing performed at Main Lab DEPARTMENT OF PATHOLOGY, [facility] [employer] [place] [address] Dejuan Cochran M.D. Director [facility] Permit #[id number] RUN DATE: 04/27/12 [facility] LIVE PAGE 1 RUN TIME: 4586 [facility] [employer] [place], [place] [address] Specimen Inquiry Name: RAYMOND SORIANO : [address]: Hoang Gan MD Acct: [id number] Unit: [id number] AGE: 52 Location: [facility] Re04/27/12 SEX: F Status: REG REF SPEC: [id number] RG: 04/27/[address]: Hoang Gan MD REQ: [id number] RECD: 04/27/12 STATUS: RES _ SOURCE: STOOL SPDESC: ORDERED: Hemoccult, Stool Culture, Fecal Lactoferr, O P: Giar/Crypt QUERIES: Med[employer] Number [id number] Procedure Result Verified Site Stool Culture PENDING Stool Specimen Description Final 04/27/12- 1410 ML Stool Color Brown Stool Form Formed Stool Consistency Firm Shiga Toxin 1 2 PENDING Fecal Lactoferrin (Stool WBC) Final 04/27/12- 1451 ML Fecal Lactoferrin Positive by Immunoassay TEST LIMITATIONS: Assay detects elevated levels of lactoferrin released from fecal leukocytes as a marker of intestinal inflammation. The test may not be appropriate in immunocompromised persons. Fecal samples from breast fed infants should not be used with this assay. Stool Occult Blood Final 04/27/12- 1410 ML Stool Occult Blood Negative O P: Giardia/Cryptospor Screen PENDING END OF REPORT * ML=Testing performed at Main Lab DEPARTMENT OF PATHOLOGY, [address] [place], [place] [id number] Dejuan Cochran M.D. Director [facility] Permit #[id number] 19 A metabolite of Naproxen, O-desmethylnaproxen, has been shown to interfere with the Jendrassik-Jose L method for measuring total bilirubin. Samples from patients who have taken Naproxen have shown spurious elevation in total bilirubin levels. 20 Because ethnic data is not always readily available, this report includes an eGFR for both -Americans and non- Americans. The National Kidney Disease Education Program (NKDEP) does not endorse the use of the MDRD equation for patients that are not between the ages of 18 and 70, are , have extremes of body size, muscle mass, or nutritional status, or are non- or non-. According to the National Kidney Foundation, irrespective of diagnosis, the stage of the disease is based on the level of kidney function: Stage Description GFR(mL/min/1.73 m(2)) 1 Kidney damage with normal or decreased GFR 90 2 Kidney damage with mild decrease in GFR 60-89 3 Moderate decrease in GFR 30-59 4 Severe decrease in GFR 15-29 5 Kidney failure <15 (or dialysis) 21 RUN DATE: 04/23/12 [facility] LIVE PAGE 1 RUN TIME: [address], [place] [address] Specimen Inquiry Name: RAYMOND SORIANO : [address]: Hoang Gan MD Acct: [id number] Unit: [id number] AGE: 52 Location: [facility] Re04/21/12 SEX: F Status: REG REF SPEC: [id number] RG: 04/21/120 [facility] DR: Hoang Gan MD REQ: [id number] RECD: 04/21/12 STATUS: COMP _ SOURCE: URINE SPDESC: ORDERED: Urine Culture QUERIES: [facility] Number [id number] Urine Source: Clean Catch Procedure Result Verified Site Urine Culture Final 04/23/12- 1147 ML Organism 1 NORMAL FLORIN Bladen Count 1-10,000 (Few) CFU/ML END OF REPORT * ML=Testing performed at Main Lab DEPARTMENT OF PATHOLOGY, [address] [place] [address] Dejuan Cochran M.D. Director [facility] Permit #[id number] 22 No significant growth. 23 Lymphopenia % 24 Anion gap measurement may be of limited value in the presence of any alkalosis, especially in a combined acid base disorder. . 25 Note change in reference range as of 03/10/08. The change was based on recommendations from the [place] [employer]. 26 A metabolite of Naproxen, O-desmethylnaproxen, has been shown to interfere with the Jendrassik-[place] method for measuring total bilirubin. Samples from patients who have taken Naproxen have shown spurious elevation in total bilirubin levels. 27 Because ethnic data is not always readily available, this report includes an eGFR for both -Americans and non- Americans. The National Kidney Disease Education Program (NKDEP) does not endorse the use of the MDRD equation for patients that are not between the ages of 18 and 70, are , have extremes of body size, muscle mass, or nutritional status, or are non- or non-. According to the National Kidney Foundation, irrespective of diagnosis, the stage of the disease is based on the level of kidney function: Stage Description GFR(mL/min/1.73 m(2)) 1 Kidney damage with normal or decreased GFR 90 2 Kidney damage with mild decrease in GFR 60-89 3 Moderate decrease in GFR 30-59 4 Severe decrease in GFR 15-29 5 Kidney failure <15 (or dialysis) 28 25^10-25,000 ORGANISMS/ML (MODERATE)^CCU 29 12/30/09 ([facility] Dec 30) 07:13 PM [facility] Pt TXed with Bactrim po and Pyridium 30 10,000 col/ml Enterobacter aerogene 60,000 col/ml URINE CULTURE organism 1 Escherichia coli 10,000 col/ml Ertapenem <=0.5 mcg/mL Susceptible Amikacin <=2 mcg/mL Susceptible Amoxicillin/CA <=2 mcg/mL Susceptible Ampicillin <=2 mcg/mL Susceptible Aztreonam <=1 mcg/mL Susceptible Cefazolin <=4 mcg/mL Susceptible Ciprofloxacin <=0.25 mcg/mL Susceptible Gentamicin <=1 mcg/mL Susceptible Levofloxacin <=0.12 mcg/mL Susceptible Nitrofurantoin <=16 mcg/mL Susceptible Piperacillin/tazobactam <=4 mcg/mL Susceptible Tetracycline <=1 mcg/mL Susceptible Trimethoprim/Sulfa <=20 mcg/mL Susceptible URINE CULTURE organism 2 Enterobacter aerogenes 60,000 col/ml Ertapenem <=0.5 mcg/mL Susceptible Amikacin <=2 mcg/mL Susceptible Aztreonam <=1 mcg/mL Susceptible Cefazolin >=64 mcg/mL Resistant Cefepime <=1 mcg/mL Susceptible Ceftriaxone <=1 mcg/mL Susceptible Ciprofloxacin <=0.25 mcg/mL Susceptible Gentamicin <=1 mcg/mL Susceptible Levofloxacin <=0.12 mcg/mL Susceptible Nitrofurantoin 64 mcg/mL Intermediate Piperacillin/tazobactam <=4 mcg/mL Susceptible Tetracycline <=1 mcg/mL Susceptible Trimethoprim/Sulfa <=20 mcg/mL Susceptible 31 -- REFERENCE VALUE -- 25-HYDROXY D TOTAL (D2+D3) Optimum levels in the normal population are 25-80 Test Performed by: [facility] [address] [place] [address] Senior Health Consultant: Travis Chaney III, M.D. 32 CHOLESTEROL INTERPRETATION: Desirable: Less than 200 MG/DL Borderline-High Risk: 200-239 MG/DL High-Risk: 240 MG/DL and over 33 HDL INTERPRETATION: Undesirable: High Risk: Less than 40 MG/DL Desirable: Low Risk: Greater than 60 MG/DL 34 LDL INTERPRETATION: Low Risk Optimal Level: LDL Less than 100 MG/DL Near or Above Optimal: LDL 100-129 MG/DL Borderline High Risk: LDL 130-159 MG/DL High Risk: LDL 160-189 MG/DL Very High Risk: LDL Greater than 189 MG/DL 35 Anion gap measurement may be of limited value in the presence of any alkalosis, especially in a combined acid base disorder. . 36 Note change in reference range as of 03/10/08. The change was based on recommendations from the [employer]. 37 Please note change in reference range effective 07 . 38 A metabolite of Naproxen, O-desmethylnaproxen, has been shown to interfere with the Cordelia- method for measuring total bilirubin. Samples from patients who have taken Naproxen have shown spurious elevation in total bilirubin levels. 39 Anion gap measurement may be of limited value in the presence of any alkalosis, especially in a combined acid base disorder. . 40 Classification: Borderline High . 41 Classification: High . 42 CALCULATED LDL APPROXIMATES THE VALUE OF A DIRECT LDL MEASUREMENT. Classification: Near or above optimal . 43 2HR GTT FAST URINE FSTNG URINE GLU from 0130:[id number]. 2HR GTT FAST SERUM FASTING GLUCOSE from 0130:[id number]. 44 Anion gap measurement may be of limited value in the presence of any alkalosis, especially in a combined acid base disorder. . 45 TITER TO FOLLOW 46 TITER TO FOLLOW 47 TEST PERFORMED BY: [facility]. [id number] [place] [id number] Procedures Date Code Description Status 08/19/2012 37658 EKG, at Least 12 Leads w/Interpretation and Report Completed 04/20/2011 [id number] Colonoscopy Completed 07/21/2008 [id number] Bone Mineral Density Test Completed 06/06/2005 30317 EKG, at Least 12 Leads w/Interpretation and Report Completed Encounters Type Date Location Provider Dx Diagnosis Office Visit 01/15/2018 Main Office Hoang Gan M.D. Z00.00 Encntr for general 8:45a adult medical exam w/o abnormal findings G47.00 Insomnia, unspecified Office Visit 05/29/2017 4:45p Main Office Hoang Gan M.D. G47.00 Insomnia, unspecified Office Visit 05/08/2017 4:15p Main Office Hoang Gan M.D. 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 G47.00 Insomnia, unspecified Office Visit 01/10/2017 9:45a Main Office Hoang Gan M.D. Z00.00 Encntr for general adult medical exam w/o abnormal findings G47.00 Insomnia, unspecified Office Visit 06/07/2016 3:45p Main Office Jojo Lund, S20.362A Insect bite FILM EDITOR SUPERVISOR-C (nonvenomous) of left front wall of thorax, init J01.90 Acute sinusitis, unspecified Z23 Encounter for immunization Office Visit 05/16/2016 11:15a Main Office Hoang Gan M.D. G47.9 Sleep disorder, unspecified Office Visit 01/02/2016 3:00p Main Office Becky Pérez Z00.00 Encntr for general Storm, FILM EDITOR SUPERVISOR-C adult medical exam w/o abnormal findings Z12.31 Encntr screen mammogram for malignant neoplasm of breast G47.00 Insomnia, unspecified B00.89 Other herpesviral infection Office Visit 09/20/2014 10:30a Main Office Becky Pérez 487.8 Influenza W/ Other Storm, FILM EDITOR SUPERVISOR-C Manifestations Office Visit 12/01/2013 3:45p Main Office Hoang Gan 465.9 URI Upper M.D. Respiratory Infections Acute Unspec Sites Office Visit 09/14/2013 8:45a Main Office Hoang Gan V70.0 Examination General M.D. Medical Routine AT Health Care Facility Office Visit 08/19/2012 2:15p Main Office Hoang Gan V70.0 Examination General M.D. Medical Routine AT Health Care Facility 787.1 Heartburn Office Visit 05/05/2012 3:15p Main Office Hoang Gan 789.06 Pain Abdominal M.D. Epigastric Office Visit 04/21/2012 11:45a Main Office Hoang Gan 789.06 Pain Abdominal M.D. Epigastric Office Visit 04/18/2011 8:45a Main Office Hoang Gan V72.31 Routine Open Tenter Operator M.D. 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 311 Depressive Disorder Not Elsewhere Spec 787.1 Heartburn 789.06 Pain Abdominal Epigastric Office Visit 06/12/2010 2:45p Main Office Hoang Gan M.D. 311 Depressive Disorder Not Elsewhere Spec 787.1 Heartburn Office Visit 04/24/2010 2:45p Main Office Hoang Gan M.D. 311 Depressive Disorder Not Elsewhere Spec 787.1 Heartburn Office Visit 04/06/2010 3:45p Main Office Cari Chew 599.0 UTI Urinary Tract Angelina Swartz Infection Site Not Spec Office Visit 03/28/2010 11:45a Main Office Hoang Gan M.D. 789.06 Pain Abdominal Epigastric 311 Depressive Disorder Not Elsewhere Spec Office Visit 12/05/2009 10:30a Main Office Lhu Ellis, 599.0 UTI Urinary Tract PA-C Infection Site Not Spec 912.4 Injury Superficial Insect Bite Shlder & Up Arm Nonven No Inf Office Visit 07/03/2009 4:30p Main Office Becky Kim, 599.0 UTI Urinary Tract FILM EDITOR SUPERVISOR-C Infection Site Not Spec Office Visit 01/05/2009 1:30p Main Office Becky Kim, V15.06 Allergy To Insects FILM EDITOR SUPERVISOR-C 272.0 Hypercholesterolemia Pure 729.1 Myalgia & Myositis Unspec V70.0 Examination General Medical Routine AT Health Care Facility 780.79 Malaise And Fatigue Other Office Visit 09/23/2008 4:30p Main Office Becky Pérez 487.1 Influenza W/ Other Julio, FILM EDITOR SUPERVISOR-C Respiratory Manifestations Office Visit 10/15/2006 8:45a Main Office Hoang Gan V72.31 Routine Open Tenter Operator M.D. Examination 788.30 Incontinence Urinary Unspec 729.1 Myalgia & Myositis Unspec Office Visit 09/16/2006 3:15p Main Office Hoang Gan, 465.9 URI Upper M.D. Respiratory Infections Acute Unspec Sites Office Visit 07/11/2006 10:45a Main Office Hoang Gan 788.30 Incontinence Urinary M.D. Unspec Office Visit 06/06/2005 8:45a Main Office Hoang Gan V72.31 Routine Open Tenter Operator M.D. 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 Circumscribed V72.31 Routine Open Tenter Operator Examination Office Visit 07/06/2004 9:15a Main Office Jazzmine Munoz, MandyN.PJulisaCJulisa 788.1 Dysuria Plan of Treatment 07/09/2018 - Hoang Gan M.D.G47.00 Insomnia, unspecifiedComments:Getting some small improvement with estrogen replacement.Had been doing very well with Remeron but unhappy with the weight loss and has now stopped it.Was doing well with Benadryl but likely was also contributing to urinary retention.Follow up: Need records [place] [facility] [place] from prior referral. (including results of sleep study) CPE in December, fasting labs a week before.N35.82 Other urethral stricture, femaleNew Xrays:Ultrasound Renal And Bladder, Scheduled: Comments:Had a urethral stricture dilated years ago.Symptoms have now returned albeit likely worsened by recent initiation of diphenhydramine.Send for renal ultrasound and urology consultFollow up:Referral to [facility]. Urethral stricture Ultrasound is Semiurgent. R/O hydronephrosis. Hold and Call.
--- NOTE | 2018-08-11 11:30 | UC ---
Respiratory Complaint HPI - HPI Summary HPI Summary: 58 yo female presents with fatigue and body aches for the last 3 days. She tells me that 3 days ago she felt very fatigued and slept all day. [place] like she was "burning up", but did not take her temperature. She has been sleeping more often and missed work yesterday and today. She works at the [employer] service. She has been taking dayquill/nyquill with mild improvement. Denies sinus symptoms, cough, SOB, chest pain, abdominal pain, n/v/d/c, dysuria. - History of Current Complaint Stated Complaint: COUGH SORE THROAT CONGESTION Time Seen by Provider: 08/11/18 11:30 Hx Obtained From: Patient Onset/Duration: Gradual Onset Severity Initially: Mild Severity Currently: Mild Pain Intensity: 3 Pain Scale Used: 0-10 Numeric - Allergies/Home Medications Allergies/Adverse Reactions: Allergies Allergy/AdvReac Type Severity Reaction Status Date / Time Penicillins Allergy Hives Verified 08/11/18 11:31 Bee Stings Allergy Airway Uncoded 08/11/18 11:31 Obstruction Hard Shellfish Allergy Hives Uncoded 08/11/18 11:31 Iodine Allergy Hives Uncoded 08/11/18 11:31 Home Medications: Home Medications Ibuprofen TAB* [Advil TAB*] 200 mg PO Q6H PRN 08/11/18 [History Confirmed ] PMH/Surg Hx/FS Hx/Imm Hx - Additional Past Medical History Additional PMH: None - Surgical History Surgical History: Yes Surgery Procedure, Year, and Place: Hysterectomy. left rotator cuff repair 2008 - Family History Known Family History: Negative: Cardiac Disease, Hypertension, Diabetes - Social History Occupation: Employed Full-time Lives: With Family Alcohol Use: Occasionally Substance Use Type: None Smoking Status (MU): Former Smoker Type: Cigarettes Have You Smoked in the Last Year: No When Did the Patient Quit Smoking/Using Tobacco: 1983 - Immunization History Most Recent Influenza Vaccination: may 2016 Review of Systems All Other Systems Reviewed And Are Negative: Yes Constitutional: Positive: Fatigue, Other - Body aches Skin: Positive: Negative Eyes: Positive: Negative ENT: Positive: Negative Respiratory: Positive: Negative Cardiovascular: Positive: Negative Gastrointestinal: Positive: Negative Neurovascular: Positive: Negative Neurological: Positive: Negative Psychological: Positive: Negative Physical Exam - Summary Physical Exam Summary: GENERAL: NAD. WDWN. No pain distress. SKIN: No rashes, sores, lesions, or open wounds. HEENT: Head: AT/NC Eyes: EOM intact. Conjunctiva clear without inflammation or discharge. Ears: Hearing grossly normal. TMs intact, no bulging, erythema, or edema. Nose: Nasal mucosa pink and moist. NTTP maxillary and frontal sinus. Throat: Posterior oropharynx without exudates, erythema, or tonsillar enlargement. Uvula midline. NECK: Supple. Nontender. No lymphadenopathy. CHEST: CTAB. No r/r/w. No accessory muscle use. Breathing comfortably and in no distress. CV: RRR. Without m/r/g. Pulses intact. Cap refill <2seconds NEURO: Alert. PSYCH: Age appropriate behavior. Triage Information Reviewed: Yes Vital Signs: Vital Signs: Temp Pulse Resp BP Pulse Ox 97.8 F 70 16 116/79 98 08/11/18 11:26 08/11/18 11:26 08/11/18 11:26 08/11/18 11:26 08/11/18 11:26 Laboratory Tests 08/11/18 11:48 Influenza A (Rapid) Positive A Vital Signs Reviewed: Yes Respiratory Course/Dx - Course Course Of Treatment: POC flu A positive. Will start with tamiflu and advise her to rest and drink plenty of fluids. May take tylenol/ibuprofen for discomfort. Will write her off of work through tuesday 08/15. - Differential Dx/Diagnosis Provider Diagnosis: Influenza A Discharge - Sign-Out/Discharge Documenting (check all that apply): Patient Departure All imaging exams completed and their final reports reviewed: No Studies - Discharge Plan Condition: Stable Disposition: HOME Prescriptions: Oseltamivir CAP* [Tamiflu CAP*] 75 mg PO BID #10 cap Patient Education Materials: Influenza (DC) Forms: *Work Release Referrals: Hoang Gan MD [Primary Care Provider] - Additional Instructions: If you develop a fever, shortness of breath, chest pain, new or worsening symptoms - please call your PCP or go to the ED. - Billing Disposition and Condition Condition: STABLE Disposition: Home - Attestation Statements Provider Attestation: I was available for consult. This patient was seen by the [facility]. The patient was not presented to, seen by, or examined by me. -Alejandra
[2018-08-11 11:31] VITALS: BP 116/79
== END 2018-08-11 12:11 | disposition home or self-care (01) ==
LOC: UCEAST 11:19
DX: J10.1 Influenza due to other identified influenza virus with other respiratory manifestations (principal); Z91.030 Bee allergy status; Z88.0 Allergy status to penicillin; Z91.013 Allergy to seafood; Z87.891 Personal history of nicotine dependence
CPT/HCPCS: 99212; G0463